=== PATIENT | female | born 1995 | race Two or more races ===

== ENCOUNTER 2021-04-18 00:20 | Emergency (ER) | payer OTHER ==
[~2021-04-18] VITALS: Ht 162.6 cm; Wt 91.2 kg
[2021-04-18] MEDS ORDERED: PRENA1 CHEW TA1.4 MG (00:32)
== END 2021-04-18 05:08 ==
LOC: ER 00:20
DX: O26.851 Spotting complicating pregnancy, first trimester (principal); Z3A.08 8 weeks gestation of pregnancy

== ENCOUNTER 2021-08-09 13:47 | Outpatient (CLI) | payer OTHER ==
[~2021-08-09 13:47] MED LIST: PRENA1 CHEW TA1.4 MG
[2021-08-09] MEDS ORDERED: ADULT ASPIRIN81 MG PO (14:32)
== END 2021-08-10 07:42 | disposition home or self-care (01) ==
LOC: OBS/DEL 13:47
PROVIDERS: ATTEND Obstetrics & Gynecology
DX: O26.892 Other specified pregnancy related conditions, second trimester (principal); Z3A.24 24 weeks gestation of pregnancy; O23.42 Unspecified infection of urinary tract in pregnancy, second trimester; N39.0 Urinary tract infection, site not specified; B96.20 Unspecified Escherichia coli [E. coli] as the cause of diseases classified elsewhere; R10.2 Pelvic and perineal pain; Z88.8 Allergy status to other drugs, medicaments and biological substances; Z91.040 Latex allergy status

== ENCOUNTER 2021-09-18 01:27 | Inpatient (IN) | payer OTHER ==
[~2021-09-18] VITALS: Ht 162.6 cm; Wt 94.8 kg
[~2021-09-18 01:27] MED LIST changes: +ADULT ASPIRIN81 MG PO
== END 2021-09-21 10:08 | disposition home or self-care (01) | DRG 833 ==
LOC: LDR 01:27 → OB/GYN 09-20 14:15
PROVIDERS: ADMIT Obstetrics & Gynecology; ATTEND Obstetrics & Gynecology
PROC: 4A1HXCZ Monitoring of Products of Conception, Cardiac Rate, External Approach (ICD-10-PCS; principal; 2021-09-18)
PROC: BW40ZZZ Ultrasonography of Abdomen (ICD-10-PCS; 2021-09-18)
PROC: BY4FZZZ Ultrasonography of Third Trimester, Single Fetus (ICD-10-PCS; 2021-09-18)
DX: O47.03 False labor before 37 completed weeks of gestation, third trimester (principal); Z20.822 Contact with and (suspected) exposure to COVID-19; Z3A.30 30 weeks gestation of pregnancy; O99.613 Diseases of the digestive system complicating pregnancy, third trimester; K80.80 Other cholelithiasis without obstruction

== ENCOUNTER 2021-09-25 14:39 | Inpatient (IN) | payer OTHER ==
[~2021-09-25] VITALS: Ht 162.6 cm; Wt 93.4 kg
[2021-10-02] MEDS ORDERED: Ursodiol 300MG CAPSU PO ×2 (06:58)
[2021-10-02] MEDS ORDERED: IBUPROFEN800 MG PO ×2 (06:58)
[2021-10-02] MEDS ORDERED: SIMETHICONE125 M1 PO ×2 (06:58)
== END 2021-10-02 14:00 | disposition home or self-care (01) | DRG 788 ==
LOC: OB/GYN 14:39 → LDR 14:39 → OB/GYN 09-27 15:53
PROVIDERS: ADMIT Obstetrics & Gynecology; ATTEND Obstetrics & Gynecology
PROC: 4A1HXCZ Monitoring of Products of Conception, Cardiac Rate, External Approach (ICD-10-PCS; 2021-09-25)
PROC: BW40ZZZ Ultrasonography of Abdomen (ICD-10-PCS; 2021-09-25)
PROC: BY4FZZZ Ultrasonography of Third Trimester, Single Fetus (ICD-10-PCS; 2021-09-25)
PROC: BU4CZZZ Ultrasonography of Uterus and Ovaries (ICD-10-PCS; 2021-09-25)
PROC: 10D00Z1 Extraction of Products of Conception, Low, Open Approach (ICD-10-PCS; principal; 2021-09-29)
DX: O60.14X0 Preterm labor third trimester with preterm delivery third trimester, not applicable or unspecified (principal); O99.613 Diseases of the digestive system complicating pregnancy, third trimester; K80.80 Other cholelithiasis without obstruction; Z3A.31 31 weeks gestation of pregnancy; Z37.0 Single live birth

== ENCOUNTER 2022-01-29 12:32 | Emergency (ER) | payer OTHER ==
[~2022-01-29] VITALS: Ht 162.6 cm; Wt 84.8 kg
[~2022-01-29 12:32] MED LIST changes: +IBUPROFEN800 MG PO; +SIMETHICONE125 M1 PO; +Ursodiol 300MG CAPSU PO
== END 2022-01-29 16:33 | disposition home or self-care (01) ==
LOC: ER 12:32
DX: K80.20 Calculus of gallbladder without cholecystitis without obstruction (principal); Z91.040 Latex allergy status; Z88.2 Allergy status to sulfonamides; R74.8 Abnormal levels of other serum enzymes

== ENCOUNTER 2022-02-03 09:03 | Outpatient (CLI) | payer OTHER | END 2022-02-03 09:17 | disposition home or self-care (01) | LOC: MRI 09:03 | PROVIDERS: ATTEND Emergency Medicine | DX: K80.19 Calculus of gallbladder with other cholecystitis with obstruction (principal); K76.9 Liver disease, unspecified | CPT/HCPCS: 74181 ==